=== PATIENT | female | born 2005 | race Caucasian/White ===

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

== ENCOUNTER 2024-03-27 16:39 | Emergency (ER) | payer OTHER ==
[~2024-03-27] VITALS: Ht 157.5 cm; Wt 74.8 kg
[2024-03-27 16:54] VITALS: BP 127/103
== END 2024-03-27 20:05 | disposition home or self-care (01) ==
LOC: ER 16:39
DX: L25.9 Unspecified contact dermatitis, unspecified cause (principal); Z88.8 Allergy status to other drugs, medicaments and biological substances